=== PATIENT | male | born 1995 | race Two or more races ===

== ENCOUNTER 2020-07-31 08:20 | Emergency (ER) | payer MEDICAID, OTHER ==
[~2020-07-31] VITALS: Ht 167.6 cm; Wt 70.3 kg
--- NOTE | 2020-07-31 08:20 | NUR ---
Dr Josue at the bedside, pt currently having seizures.
[2020-07-31] MEDS ORDERED: LORAZEPAM 2 MG/1 ML VIAL IV ONE ×2 (08:30→08:45)
[2020-07-31] MEDS ORDERED: IV NORMAL SALINE 1000 ML BAG IV ONE (08:30)
[2020-07-31] MEDS ORDERED: TRAMADOL (08:33)
[2020-07-31] MEDS ORDERED: PEPCID (08:33)
[2020-07-31] MEDS ORDERED: DILANTIN (08:33)
[2020-07-31] MEDS ORDERED: levETIRAcetam IV 500 MG in IV DEXTROSE 5% 100 ML IV ONE (08:45)
[2020-07-31] MEDS ORDERED: LORAZEPAM 2 MG/1 ML VIAL ONE ×2 (08:46→08:50)
[2020-07-31 08:47] LABS: BASOPHILS # (AUTO) 0.1 K/uL (0.0-8.0); BASOPHILS % (AUTO) 0.7 % (0.0-2.0); EOSINOPHILS # (AUTO) 0.1 K/uL (0.0-0.7); EOSINOPHILS % (AUTO) 1.5 % (0.0-7.0); HEMATOCRIT 35.9 % (36.7-47.1); HEMOGLOBIN 12.5 g/dL (12.5-16.3); LYMPHOCYTES # (AUTO) 1.4 K/uL (20.0-40.0); LYMPHOCYTES % (AUTO) 18.6 % (20.5-51.5); MEAN CORPUSCULAR HEMOGLOBIN 27.4 uug (23.8-33.4); MEAN CORPUSCULAR HGB CONC 35 g/dL (32.5-36.3); MEAN CORPUSCULAR VOLUME 78.9 fL (73.0-96.2); MONOCYTES # (AUTO) 0.5 K/uL (2.0-10.0); MONOCYTES % (AUTO) 6.1 % (0.0-11.0); NEUTROPHILS # (AUTO) 5.7 K/uL (1.8-8.9); NEUTROPHILS % (AUTO) 73.1 % (38.5-71.5); PLATELET COUNT (AUTO) 332 K/uL (152-348); RED BLOOD CELL COUNT(AUTO) 4.55 MIL/uL (4.06-5.63); WHITE BLOOD COUNT (AUTO) 7.8 K/uL (3.6-10.2)
[2020-07-31] MEDS ORDERED: levETIRAcetam 500 MG/5 ML VIAL IV ONE (08:48)
[2020-07-31 08:56] LABS: CREATININE 0.8 mg/dL (0.6-1.3); POTASSIUM 3.5 mmol/L (3.5-5.1)
[2020-07-31] MEDS ORDERED: ONDANSETRON 4 MG/2 ML VIAL ONE ×2 (08:59→09:20)
[2020-07-31] MEDS ORDERED: HALOPERIDOL LACTATE 5 MG/1 ML VIAL ONE (08:59)
[2020-07-31] MEDS ORDERED: HALOPERIDOL LACTATE 5 MG/1 ML VIAL IM ONE (09:00)
[2020-07-31] MEDS ORDERED: ONDANSETRON 4 MG/2 ML VIAL IV ONE (09:00)
--- NOTE | 2020-07-31 09:00 | NUR ---
Pt states,"I'm having a seizer, can't you see, why am I getting any pain medication." Explained to pt he recieved medications for seizures and N/V.
--- NOTE | 2020-07-31 09:08 | NUR ---
Pt continues to act out and stating"I'm having a seizure", Dr Josue at the bedside speaking w/ Pt.
--- NOTE | 2020-07-31 09:10 | NUR ---
code laurita wolff, security, rt and md at bedside.
[2020-07-31 09:11] LABS: BILIRUBIN,DIRECT 0.1 mg/dL (0.0-0.2); BILIRUBIN,TOTAL 0.2 mg/dL (0.2-1.0); TOTAL PROTEIN, SERUM 7.2 g/dL (6.4-8.2)
--- NOTE | 2020-07-31 09:30 | NUR ---
IV removed. Catheter intact and site benign. Pressure and 4x4 gauze applied to site. No bleeding noted.
--- NOTE | 2020-07-31 09:31 | NUR ---
Patient does not wish to proceed with medical care recommended by Dr. Cabral ). Patient given information related to possible complications, up to and including , which could occur as a result of leaving the hospital at this time. Patient verbalizes understanding of risks involved due to leaving against medical advice. Patient has signed AMA form.
--- NOTE | 2020-07-31 09:31 | NUR ---
PT walked out of ER w/ steady gait.
[2020-07-31] MEDS ORDERED: DEPAKOTE (09:39)
[2020-07-31 09:40] VITALS: BP 116/72
== END 2020-07-31 09:33 | disposition left against medical advice (07) ==
LOC: ER 08:20
DX: G40.909 Epilepsy, unspecified, not intractable, without status epilepticus (principal); I49.8 Other specified cardiac arrhythmias; R10.816 Epigastric abdominal tenderness; K58.9 Irritable bowel syndrome, unspecified; R11.10 Vomiting, unspecified; Z20.828 Contact with and (suspected) exposure to other viral communicable diseases; Z79.899 Other long term (current) drug therapy
CPT/HCPCS: 36415; 71045; 80048; 80076; 80164; 80185; 82962; 85025; 87426; 93005; 96365; 96372; 96375; 99285; J1630; J1953; J2060 ×2; J2405 ×2; U0003; A4663; J7030

== ENCOUNTER 2020-10-07 15:24 | Emergency (ER) | payer OTHER ==
[~2020-10-07] VITALS: Ht 167.6 cm; Wt 70.3 kg
[~2020-10-07 15:24] MED LIST: DEPAKOTE; DILANTIN; PEPCID; TRAMADOL
[2020-10-07] MEDS ORDERED: LORAZEPAM 2 MG/1 ML VIAL ONE (15:53)
[2020-10-07] MEDS ORDERED: LORAZEPAM 2 MG/1 ML VIAL IV ONE (16:00)
--- NOTE | 2020-10-07 16:08 | NUR ---
PT MEDICATED FOR EMOTIONAL AGITATION PER MD ORDER.
[2020-10-07 16:12] LABS: BASOPHILS % (AUTO) 0.4 % (0.0-2.0); EOSINOPHILS # (AUTO) 0.1 K/uL (0.0-0.7); EOSINOPHILS % (AUTO) 1.5 % (0.0-7.0); HEMOGLOBIN 11.3 g/dL (12.5-16.3); LYMPHOCYTES # (AUTO) 1.8 K/uL (20.0-40.0); MEAN CORPUSCULAR HEMOGLOBIN 26.5 uug (23.8-33.4); MEAN CORPUSCULAR HGB CONC 33 g/dL (32.5-36.3); MEAN CORPUSCULAR VOLUME 79.9 fL (73.0-96.2); MONOCYTES # (AUTO) 0.8 K/uL (2.0-10.0); MONOCYTES % (AUTO) 9.6 % (0.0-11.0); NEUTROPHILS % (AUTO) 68.5 % (38.5-71.5); PLATELET COUNT (AUTO) 388 K/uL (152-348); RED BLOOD CELL COUNT(AUTO) 4.26 MIL/uL (4.06-5.63); WHITE BLOOD COUNT (AUTO) 8.7 K/uL (3.6-10.2)
[2020-10-07 16:25] LABS: CARBON DIOXIDE 20 mmol/L (21-32); CHLORIDE 103 mmol/L (98-107); CREATININE 0.9 mg/dL (0.6-1.3); GLUCOSE 113 mg/dL (74-106); UREA NITROGEN, BLOOD 7 mg/dL (7-18)
[2020-10-07 16:28] LABS: ETHANOL < 3 MG/DL (0-0)
[2020-10-07 16:31] LABS: ALANINE AMINOTRANSFERASE 34 U/L (16-63); ALKALINE PHOSPHATASE 65 U/L (50-136); ASPARTATE AMINOTRANSFERASE 27 U/L (15-37); BILIRUBIN,DIRECT < 0.1 mg/dL (0.0-0.2); BILIRUBIN,TOTAL 0.3 mg/dL (0.2-1.0)
[2020-10-07 16:32] LABS: ACETAMINOPHEN < 2.0 ug/mL (10-30)
[2020-10-07 16:41] LABS: *COLOR,URINE YELLOW (YELLOW); *KETONES,URINE 4+ (NEGATIVE); *UROBILINOGEN,URINE 0.2 E.U./dl (NORMAL); LEUKOCYTE ESTERASE ,URINE NEGATIVE (NEGATIVE); NITRITE, URINE NEGATIVE (NEGATIVE); PH,URINE 6.5 (5.0-8.0); UGLUCOSE NEGATIVE (NEGATIVE)
[2020-10-07 16:46] LABS: *AMPHETAMINE, URINE POSITIVE (NEGATIVE); *BILIRUBIN,URIN 2+ (NEGATIVE); *BLOOD, URINE TRACE (NEGATIVE); *CANNABINOID, URINE POSITIVE (NEGATIVE); *COCCAINE, URINE NEGATIVE (NEGATIVE); *OPIATE, URINE NEGATIVE (NEGATIVE); *PHENCYCLIDINE SCREEN,URINE NEGATIVE (NEGATIVE)
[2020-10-07 16:56] LABS: THYROID STIMULATING HORMONE 0.188 mIU/mL (0.358-3.740)
[2020-10-07 17:03] LABS: *CLARITY,URINE HAZY (CLEAR)
[2020-10-07 17:05] LABS: BACTERIA,URINE FEW /HPF (NONE SEEN); MUCUS,URINE MODERATE /LPF (0-FEW); SQUAMOUS EPITHELIAL CELL,UR NONE SEEN /HPF (NONE SEEN)
--- NOTE | 2020-10-07 17:15 | NUR ---
PT EMOTIONAL OUTBURST IMPROVED. PT WALKED OUT OF ER AND DECIDED TO LEAVE. AWARE.
== END 2020-10-07 17:18 | disposition left against medical advice (07) ==
LOC: ER 15:24
DX: F41.1 Generalized anxiety disorder (principal); R00.0 Tachycardia, unspecified; K58.9 Irritable bowel syndrome, unspecified; G40.909 Epilepsy, unspecified, not intractable, without status epilepticus; Z79.899 Other long term (current) drug therapy
CPT/HCPCS: 36415; 71045; 80048; 80076; 80185; 80299; 80307; 80320; 81001; 82140; 84443; 84484; 85025; 85730; 87086; 93005; 96374; 99285; J2060; 70030-TC; A4663; G0480; J7030